=== PATIENT | male | born 1965 | race Caucasian/White ===

== ENCOUNTER 2017-03-14 17:04 | Emergency (ER) | payer OTHER ==
[~2017-03-14] VITALS: Ht 172.7 cm; Wt 53.6 kg
[~2017-03-14 17:04] MED LIST: ADVIL,NUPRIN,M200 MG PO; ATENOLOL100 MG PO; BACLOFEN20 MG PO; ENOXAPARIN40 MG/0.4 SC; GENTLE LAXATIVE10 MG PR; HEPARIN SO5000 UNITS SC; HYDROCHLOROTHIA25 MG PO; LOSARTAN POTASS50 MG PO; PANTOPRAZOLE SO40 MG PO; TEARS NATURALE-15 ML BOTH EYES
[2017-03-14 20:09] VITALS: BP 114/73
== END 2017-03-14 20:10 | disposition home or self-care (01) ==
LOC: EME 17:04
DX: M54.2 Cervicalgia (principal); W17.89XA Other fall from one level to another, initial encounter; Z98.1 Arthrodesis status; I10 Essential (primary) hypertension; F17.200 Nicotine dependence, unspecified, uncomplicated
CPT/HCPCS: 70450; 72125; 99281; 99284